=== PATIENT | female | born 1955 | race Caucasian/White ===

== ENCOUNTER 2023-03-12 15:27 | Outpatient (CLI) | payer OTHER, SELFPAY ==
--- NOTE | 2023-03-12 15:44 | MM_ITS ---
WS: [id number] Bilateral screening 3D tomosynthesis digital mammogram, 03/12/2023 Clinical Data: SCREEN Comparison: None. Findings: The breast parenchymal pattern shows fibroglandular tissue. No spiculated masses or clustered calcifi cations are seen. There are no secondary signs of carcinoma. MM/[place] [id number] Impression: 1. Negative bilateral mammogram with no prior exam for review. 2. Recommend annual screening mammograms. BIRADS: 1-Negative FOLLOW UP: 1 Year Follow-up The CAD lap checker was used.
== END 2023-03-12 15:28 | disposition home or self-care (01) ==
LOC: RAD 15:36
PROVIDERS: PCP Nurse Practitioner Family; Visit Provider Nurse Practitioner Family
DX: Z12.31 Encounter for screening mammogram for malignant neoplasm of breast (principal)
CPT/HCPCS: 77063; 77067

== ENCOUNTER → 2023-04-15 14:16 | Outpatient (BNVA) | payer OTHER, SELFPAY | PROVIDERS: PCP Nurse Practitioner Family; Referring Provider Registered Nurse; Visit Provider Orthopaedic Surgery | DX: M43.16 Spondylolisthesis, lumbar region (principal); M54.9 Dorsalgia, unspecified; M54.16 Radiculopathy, lumbar region; M43.17 Spondylolisthesis, lumbosacral region | CPT/HCPCS: 72120 ==

== ENCOUNTER 2023-05-04 14:06 | Outpatient (CLI) | payer OTHER, SELFPAY ==
--- NOTE | 2023-05-04 14:30 | MR_ITS ---
WS: [id number] MRI LUMBAR SPINE NONCONTRAST HISTORY: lower back pain with radiculopathy COMPARISON: Lumbar spine radiograph 04/15/2023. TECHNIQUE: Sagittal and axial multisequence imaging is submitted. Same numbering pattern of the vertebral bodies will be used on the MRI as the plain radiographs. L4 anterolisthesis by 12 mm. Severe disc space narrowing at L4-5. No marrow edema or fracture. Mild disc space narrowing at L5-S1. Conus terminates normally at L1-2 disc level. L1-L2: Normal. L2-L3: Mild annular disc bulging with moderate encroachment upon the subarticular recesses. Mild cent ral and bilateral subarticular recess stenosis. L3-L4: Mild annular disc bulging with facet disease. Mild encroachment upon the subarticular recesses . Mild central and bilateral foraminal stenosis. There is mild disc contact on the LEFT exiting L3 ne rve root. L4-L5: Diffuse annular disc bulging. 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 Fluid in the facet joints. Moderate to severe central, bilateral subarticular rec ess and moderate foraminal stenosis. Most significant contact on the traversing LEFT L5 nerve root. L5-S1: Diffuse annular disc bulging encroaching upon the ventral thecal sac. RIGHT paracentral disc p rotrusion contacts the RIGHT S1 nerve root. Moderate bilateral foraminal stenosis. Paravertebral soft tissues are normal. MR/MR lumbar spine wo con* [id number] IMPRESSION: 1. Grade 1 spondylolisthesis of L4. 2. Moderate to severe central, bilateral subarticular recess and moderate fora bren stenosis at L4-5. Most significant contact on the traversing LEFT L5 nerv e root. 3. Moderate bilateral subarticular recess and foraminal stenosis at L5-S1. RIG HT paracentral disc protrusion contacts the RIGHT S1 nerve root. 4. Mild central, bilateral subarticular recess stenosis at L2-3. 5. Mild central and bilateral foraminal stenosis at L3-4. Slight disc contact on the LEFT exiting L3 nerve root.
== END 2023-05-04 14:07 | disposition home or self-care (01) ==
PROVIDERS: PCP Nurse Practitioner Family; Visit Provider Orthopaedic Surgery
DX: M43.17 Spondylolisthesis, lumbosacral region (principal); M54.16 Radiculopathy, lumbar region; M48.061 Spinal stenosis, lumbar region without neurogenic claudication; M48.07 Spinal stenosis, lumbosacral region
CPT/HCPCS: 72148

== ENCOUNTER → 2023-07-13 15:47 | Outpatient (BNVA) | payer OTHER, SELFPAY | PROVIDERS: PCP Nurse Practitioner Family; Visit Provider Orthopaedic Surgery | DX: M16.12 Unilateral primary osteoarthritis, left hip (principal) | CPT/HCPCS: 73502 ==

== ENCOUNTER 2024-08-18 06:00 | Outpatient (CLI) | payer OTHER, MEDICARE, SELFPAY | END 2024-08-18 23:59 | disposition home or self-care (01) | LOC: SPT 08-21 10:44 | PROVIDERS: Visit Provider Specialist | DX: Z46.89 Encounter for fitting and adjustment of other specified devices (principal); S62.307S Unspecified fracture of fifth metacarpal bone, left hand, sequela; X58.XXXS Exposure to other specified factors, sequela | CPT/HCPCS: L3984 ==

== ENCOUNTER → 2024-08-18 10:29 | Outpatient (BNVA) | payer OTHER, SELFPAY | PROVIDERS: PCP Nurse Practitioner Family; Referring Provider Nurse Practitioner Family; Visit Provider Specialist | DX: S62.367A Nondisplaced fracture of neck of fifth metacarpal bone, left hand, initial encounter for closed fracture (principal); M18.12 Unilateral primary osteoarthritis of first carpometacarpal joint, left hand; X58.XXXA Exposure to other specified factors, initial encounter | CPT/HCPCS: 73130 ==